=== PATIENT | male | born 1955 | race Caucasian/White ===

== ENCOUNTER 2022-03-06 11:57 | Emergency (ER) | payer MEDICARE, OTHER ==
[~2022-03-06] VITALS: Ht 162.6 cm; Wt 92.1 kg
[~2022-03-06 11:57] MED LIST: ATOR40TA29 PO; BUPR75TA3 PO; ENAL20TA18 PO; FLUT1DIS27 BC; HYDR12.55 PO; LANS30CA54 PO; MELO-105 PO; P EP PO; VALA500T PO; VERAMYST
--- NOTE | 2022-03-06 12:07 | NUR ---
[email or web address],medical screening exam in progress
[2022-03-06] MEDS ORDERED: HYDROCODONE/APAP 5-325MG TABLET PO ONE (12:15)
[2022-03-06] MEDS ORDERED: VANCOMYCIN IV 1,000 MG in IV DEXTROSE 5% 250 ML IV ONE (12:15)
[2022-03-06] MEDS ORDERED: PIPERACILLIN SODIUM/TAZOBACTAM 3.375 G in IV DEXTROSE 5% 50 ML IV ONE (12:15)
[2022-03-06] MEDS ORDERED: HYDROCODONE/APAP 5-325MG TABLET ONE (12:24)
[2022-03-06] MEDS ORDERED: PIPERACILLIN/TAZOBACTAM/D5W 50 ML IV ONE (12:24)
[2022-03-06] MEDS ORDERED: VANCOMYCIN IV 200 ML ONE (12:27)
[2022-03-06 12:35] LABS: HEMATOCRIT 45.5 % (36.7-47.1); MEAN CORPUSCULAR HEMOGLOBIN 31.2 uug (23.8-33.4); MEAN CORPUSCULAR VOLUME 93.7 fL (73.0-96.2); PLATELET COUNT (AUTO) 354 K/uL (152-348)
[2022-03-06 12:43] LABS: *BILIRUBIN,URIN NEGATIVE (NEGATIVE); *BLOOD, URINE NEGATIVE (NEGATIVE); *CLARITY,URINE CLEAR (CLEAR); *COLOR,URINE YELLOW (YELLOW); *KETONES,URINE NEGATIVE (NEGATIVE); *UROBILINOGEN,URINE 0.2 E.U./dl (NORMAL); LEUKOCYTE ESTERASE ,URINE NEGATIVE (NEGATIVE); NITRITE, URINE NEGATIVE (NEGATIVE); UGLUCOSE NEGATIVE (NEGATIVE)
[2022-03-06 12:47] LABS: BILIRUBIN,DIRECT 0.1 mg/dL (0.0-0.2); BILIRUBIN,TOTAL 0.3 mg/dL (0.2-1.0); CREATININE 0.9 mg/dL (0.6-1.3); POTASSIUM 4.1 mmol/L (3.5-5.1); TOTAL PROTEIN, SERUM 8.1 g/dL (6.4-8.2)
[2022-03-06] MEDS ORDERED: INSU100I26 SQ (13:02)
[2022-03-06] MEDS ORDERED: OMEP40CA21 PO (13:02)
[2022-03-06] MEDS ORDERED: METF-442 PO (13:02)
[2022-03-06] MEDS ORDERED: FLUT1DIS29 INH (13:02)
[2022-03-06] MEDS ORDERED: LOSA1TAB39 PO (13:02)
[2022-03-06] MEDS ORDERED: VALA500T34 PO (13:02)
[2022-03-06] MEDS ORDERED: AMLO10TA59 PO (13:02)
[2022-03-06] MEDS ORDERED: LEVO5TAB13 PO (13:02)
[2022-03-06] MEDS ORDERED: GABA-532 PO (13:02)
[2022-03-06] MEDS ORDERED: METO-356 PO (13:02)
[2022-03-06] MEDS ORDERED: MONT10TA22 PO (13:02)
[2022-03-06] MEDS ORDERED: DULO60CA45 PO (13:02)
[2022-03-06] MEDS ORDERED: ALBU18HF2 INH (13:02)
[2022-03-06] MEDS ORDERED: DULA1.5P SQ (13:02)
[2022-03-06] MEDS ORDERED: TIOT18CA3 IH (13:02)
--- NOTE | 2022-03-06 13:15 | NUR ---
Pt's Piperacillin infusion completed.
[2022-03-06] MEDS ORDERED: CICL6.6S5 TP (13:31)
[2022-03-06] MEDS ORDERED: LEVO500T90 PO (13:31)
[2022-03-06] MEDS ORDERED: ASPI81TA31 PO (13:31)
[2022-03-06] MEDS ORDERED: CELE200C PO (13:31)
[2022-03-06] MEDS ORDERED: SULF1TAB47 PO (13:31)
[2022-03-06] MEDS ORDERED: CYAN100T44 PO (13:31)
[2022-03-06] MEDS ORDERED: FERR325T28 PO (13:31)
[2022-03-06] MEDS ORDERED: [UNRECOGNIZED DRUG - OTHER] TOP (13:31)
[2022-03-06] MEDS ORDERED: ACET-73 PO (13:31)
[2022-03-06] MEDS ORDERED: DOXY-326 PO (13:39)
[2022-03-06] MEDS ORDERED: CEPH500C2 PO (13:39)
--- NOTE | 2022-03-06 13:59 | NUR ---
Patient is for discharge to home after the IV antibiotic medicines are infused. Written and verbal after care instructions given to patient. Patient verbalized understanding and compliance of instructions. Stressed follow up with primary doctor or return to ER for worsening s/s.
--- NOTE | 2022-03-06 14:44 | NUR ---
IV removed. Catheter intact and site benign. Pressure and 4x4 gauze applied to site. No bleeding noted. Patient discharged to home in stable condition with brisk steady gait.
--- NOTE | 2022-03-06 15:00 | NUR ---
Completed transfusion of Vancomycin. Pt tolorated well. Addendum: 03/07/22 at 1028 by MYOUABIAN Vanco IV infusion ended at 1440.
== END 2022-03-06 14:52 | disposition home or self-care (01) ==
LOC: ER 12:03
DX: L03.114 Cellulitis of left upper limb (principal); Z20.822 Contact with and (suspected) exposure to COVID-19; M21.932 Unspecified acquired deformity of left forearm; E78.5 Hyperlipidemia, unspecified; J44.9 Chronic obstructive pulmonary disease, unspecified; E11.9 Type 2 diabetes mellitus without complications; Z79.82 Long term (current) use of aspirin; Z79.84 Long term (current) use of oral hypoglycemic drugs; Z79.4 Long term (current) use of insulin; Z79.899 Other long term (current) drug therapy
CPT/HCPCS: 99284; 96365; 96367; 87426; 80076; 80048; 81003; 85025; 84145; 85730; 87040 ×2; 87086; 36415; 73080; 83605; J2543; J3370; A4663

== ENCOUNTER 2022-08-10 19:14 | Emergency (ER) | payer MEDICARE, OTHER ==
[~2022-08-10] VITALS: Ht 165.1 cm; Wt 97.5 kg
[~2022-08-10 19:14] MED LIST changes: +ACET-73 PO; +ALBU18HF2 INH; +AMLO10TA59 PO; +ASPI81TA31 PO; -BUPR75TA3 PO; +CELE200C PO; +CEPH500C2 PO; +CICL6.6S5 TP; +CYAN100T44 PO; +DOXY-326 PO; +DULA1.5P SQ; +DULO60CA45 PO; -ENAL20TA18 PO; +FERR325T28 PO; +FLUT1DIS29 INH; +GABA-532 PO; -HYDR12.55 PO; +INSU100I26 SQ; -LANS30CA54 PO; +LEVO500T90 PO; +LEVO5TAB13 PO; +LOSA1TAB39 PO; -MELO-105 PO; +METF-442 PO; +METO-356 PO; +MONT10TA22 PO; +OMEP40CA21 PO; -P EP PO; +SULF1TAB47 PO; +TIOT18CA3 IH; -VALA500T PO; +VALA500T34 PO; -VERAMYST; +[UNRECOGNIZED DRUG - OTHER] TOP
--- NOTE | 2022-08-10 20:20 | NUR ---
Dr Wahl at bedside at bedside, MSE in progress
[2022-08-10 21:02] LABS: MEAN CORPUSCULAR HEMOGLOBIN 31.2 uug (23.8-33.4); MEAN CORPUSCULAR VOLUME 92.6 fL (73.0-96.2); PLATELET COUNT (AUTO) 372 K/uL (152-348)
[2022-08-10 21:22] LABS: BILIRUBIN,DIRECT 0.1 mg/dL (0.0-0.2); BILIRUBIN,TOTAL 0.3 mg/dL (0.2-1.0); CREATININE 0.8 mg/dL (0.6-1.3); POTASSIUM 3.5 mmol/L (3.5-5.1); TOTAL PROTEIN, SERUM 7.8 g/dL (6.4-8.2)
[2022-08-10] MEDS ORDERED: IV NORMAL SALINE 250 ML IV ONE (21:44)
[2022-08-10] MEDS ORDERED: IOHEXOL 300MG/ML 100 ML INFUS..BTL ONE (21:44)
[2022-08-10] MEDS ORDERED: SWABABLE VALVE TRANSFER SET EA MC ONE (21:44)
[2022-08-10 21:48] LABS: *BILIRUBIN,URIN NEGATIVE (NEGATIVE); *CLARITY,URINE CLEAR (CLEAR); *COLOR,URINE YELLOW (YELLOW); *KETONES,URINE TRACE (NEGATIVE); *UROBILINOGEN,URINE 0.2 E.U./dl (NORMAL); LEUKOCYTE ESTERASE ,URINE NEGATIVE (NEGATIVE); NITRITE, URINE NEGATIVE (NEGATIVE); UGLUCOSE NEGATIVE (NEGATIVE)
[2022-08-10 21:50] LABS: *BLOOD, URINE TRACE (NEGATIVE)
[2022-08-10 23:23] LABS: BACTERIA,URINE NONE SEEN /HPF (NONE SEEN); RBC,URINE 0-3 /HPF (0-3); SQUAMOUS EPITHELIAL CELL,UR NONE SEEN /HPF (NONE SEEN); WBC,URINE 0-3 /HPF (0-3)
[2022-08-10] MEDS ORDERED: BLOO-1730 MC (23:57)
--- NOTE | 2022-08-11 00:29 | NUR ---
Patient discharged to home in stable condition. Written and verbal after care instructions given. Patient verbalizes understanding of instructions. Stressed follow up or return to ER for worsening s/s. Patient is a/ox4, NAD noted, patient ambulated with steady gait
[2022-08-11 00:30] VITALS: BP 135/78
== END 2022-08-11 00:31 | disposition home or self-care (01) ==
LOC: ER 19:22
DX: R14.0 Abdominal distension (gaseous) (principal); E11.9 Type 2 diabetes mellitus without complications; E83.42 Hypomagnesemia; J44.9 Chronic obstructive pulmonary disease, unspecified; K21.9 Gastro-esophageal reflux disease without esophagitis; Z90.49 Acquired absence of other specified parts of digestive tract; Z79.2 Long term (current) use of antibiotics; Z79.899 Other long term (current) drug therapy; Z79.82 Long term (current) use of aspirin
CPT/HCPCS: 99285; 74177; 80076; 80048; 81001; 83036; 83735; 85025; 36415; 74018; Q9967; A4663

== ENCOUNTER 2024-12-04 13:02 | Emergency (ER) | payer MEDICARE, OTHER ==
[~2024-12-04] VITALS: Ht 165.1 cm; Wt 100.7 kg
[~2024-12-04 13:02] MED LIST changes: +BLOO-1730 MC
[2024-12-04 14:04] LABS: PLATELET COUNT (AUTO) 286 K/uL (152-348); RED BLOOD CELL COUNT(AUTO) 4.70 MIL/uL (4.06-5.63); RED CELL DISTRIBUTION WIDTH 13.7 % (12.1-16.2); WHITE BLOOD COUNT (AUTO) 11.5 K/uL (3.6-10.2)
[2024-12-04 14:12] LABS: CREATININE 0.8 mg/dL (0.6-1.3); SODIUM SERUM 142 mmol/L (136-145); UREA NITROGEN, BLOOD 11 mg/dL (7-18)
[2024-12-04 14:18] LABS: ASPARTATE AMINOTRANSFERASE 17 U/L (15-37); TOTAL PROTEIN, SERUM 7.2 g/dL (6.4-8.2)
[2024-12-04] MEDS ORDERED: CEPH500C2 PO (14:18)
[2024-12-04] MEDS ORDERED: ALBU18HF2 IH (14:31)
[2024-12-04] MEDS ORDERED: ROSU40TA PO (14:31)
[2024-12-04] MEDS ORDERED: INSU100I33 SQ (14:31)
[2024-12-04] MEDS ORDERED: BACL10TA PO (14:31)
[2024-12-04] MEDS ORDERED: HYDR-3980 PO (14:31)
[2024-12-04] MEDS ORDERED: BRIN8DRO (14:31)
[2024-12-04] MEDS ORDERED: INSU100I19 SQ (14:31)
[2024-12-04] MEDS ORDERED: CYAN50009 PO (14:31)
[2024-12-04] MEDS ORDERED: MAGN500C16 PO (14:35)
[2024-12-04] MEDS ORDERED: DOCU100T2 PO (14:35)
[2024-12-04] MEDS ORDERED: IOHEXOL 350 100 ML INFUS..BTL ONE (16:10)
[2024-12-04] MEDS ORDERED: SWABABLE VALVE TRANSFER SET EA MC ONE (16:10)
[2024-12-04] MEDS ORDERED: IV NORMAL SALINE 250 ML IV ONE (16:11)
[2024-12-04 18:42] VITALS: BP 132/77; O2SAT 96
== END 2024-12-04 18:43 | disposition home or self-care (01) ==
LOC: ER 13:02
DX: R06.00 Dyspnea, unspecified (principal); M79.604 Pain in right leg; M79.605 Pain in left leg; R07.9 Chest pain, unspecified; R41.0 Disorientation, unspecified; R53.1 Weakness; R60.0 Localized edema; E11.69 Type 2 diabetes mellitus with other specified complication; E78.5 Hyperlipidemia, unspecified; F32.A Depression, unspecified; K21.9 Gastro-esophageal reflux disease without esophagitis; M19.90 Unspecified osteoarthritis, unspecified site; I87.2 Venous insufficiency (chronic) (peripheral); J44.9 Chronic obstructive pulmonary disease, unspecified; Z79.4 Long term (current) use of insulin; Z79.51 Long term (current) use of inhaled steroids; Z79.624 Long term (current) use of inhibitors of nucleotide synthesis; Z79.82 Long term (current) use of aspirin; Z79.84 Long term (current) use of oral hypoglycemic drugs; Z79.85 Long-term (current) use of injectable non-insulin antidiabetic drugs; Z79.899 Other long term (current) drug therapy; Z88.7 Allergy status to serum and vaccine; Z90.49 Acquired absence of other specified parts of digestive tract; Z96.653 Presence of artificial knee joint, bilateral; Z87.2 Personal history of diseases of the skin and subcutaneous tissue
CPT/HCPCS: 99285; 93970; 71275; 71045; 80076; 80048; 83880; 85025; 85379; 85730; 84484 ×2; 36415; 93005; Q9967; A4606; A4663